=== PATIENT | female | born 1940 | race Caucasian/White ===

== ENCOUNTER 2016-06-08 12:49 | Day surgery (SDC) | payer MEDICARE, OTHER ==
[~2016-06-08] VITALS: Ht 151.1 cm; Wt 73.4 kg
[2016-06-08] VITALS (12 sets, daily range): BP systolic 118–193; BP diastolic 56–107; PULSE 63–77; RESP 13–22; TEMP 97–98.6; O2SAT 94–97; Ht 151.1 cm; Wt 73.4 kg
[~2016-06-08 12:49] MED LIST: ALBU8.5H INH; AMLO10TA2 PO; AMLO10TA4 PO; ASPI-715 PO; CEFAZOLIN 1 GRAM INJECTION IV ONE; CELE-85 PO; CITA-51 PO; LIDOCAINE 1% (10mg/ml) 2ml SDV INJ ONE; LORA2TAB81 PO; LOSA100T44 PO; LR 1,000 ML IV SCH; NEBI5TAB8 PO; OMEP40CA30 PO; QUET25TA73 PO; SUCR1TAB29 PO; [UNRECOGNIZED DRUG - CODE] PO
--- OUTSIDE RECORDS SUMMARY | 2016-06-08 12:52 | XMS REPORT | Continuity of Care Document ---
Author Author [facility] Organization [facility] Address Unknown Phone Unavailable Support Name Relationship Address Phone SOFIA NOYOLA DO Caregiver [phone] [place] [address] Unavailable DARBY STANLEY MD Caregiver [address] [place] [address] [place] [phone] Unavailable RIGOBERTO OLVERA Next Of Kin [address] [place], [place] [id number] Insurance Providers Guarantor Aletha Olvera Wendy Address [address] [place] [address] C Email DENIED/NO TO PT PORTAL Payer Other A Insurance Policy Number [id number] Subscriber's Name Aletha Olvera Wendy Relationship 18 Self Group Number [id number] Effective Date 13 Payer Medicare Policy Number [id number] Subscriber's Name Aletha Olvera Wendy Relationship 18 Self Chief Complaint and Reason for Visit Chief Complaint Cardiac Complaint Reason for Visit Hypertensive urgency Problems Past Problems Medical Problem Onset Date Hypertensive urgency Unknown Medications Current Home Medications Medication Dose Units Route Directions Days Qty Instructions Start Date Albuterol Sulfate (Proair Hfa 90 Mcg/Actuation) 8.5 Gm Hfa.aer.ad 1 Puff Inhalation Every 4 Hours as needed for Shortness Of Air 9 11/06/14 Amlodipine Besylate 10 Mg Tablet 10 Mg Oral Daily 10/31/15 Aspirin (Aspirin Ec) 81 Mg Tablet. 81 Mg Oral Daily 12/23/12 Citalopram Hydrobromide (Celexa) 40 Mg Tablet 40 Mg Oral Bedtime 12/23/12 Lisinopril/Hydrochlorothiazide (Lisinopril-Hctz 10-12.5 Mg Tab) 1 Each Tablet 1 Tab Oral Daily 11/06/14 Lorazepam (Ativan) 2 Mg Tablet 2 Mg Oral Bedtime 12/12/09 Losartan Potassium (Cozaar) 100 Mg Tablet 100 Mg Oral Daily 12/12 Omeprazole (Prilosec) 40 Mg Capsule. 40 Mg Oral Daily 12/23/12 Quetiapine Fumarate 25 Mg Tablet 25 Mg Oral Bedtime 11/06/14 Sucralfate (Carafate) 1 G Tablet 1 G Oral Bedtime 08/13/11 Sulfasalazine 500 Mg Tablet 500 Mg Oral Three Times A Day Past Home Medications Medication Directions Ordered Status Lisinopril 40 Mg Tablet, 40 Mg Oral Daily 06/27/08 Discontinued Meloxicam (Mobic) 15 Mg Tablet, 15 Mg Oral Daily 02/13/08 Discontinued Ranitidine Hcl (Zantac) 300 Mg Tablet, 300 Mg Oral Bedtime 06/27/08 Discontinued Triamterene/Hydrochlorothiazid (Triamterene-Hctz 37.5-25 Tab) 1 Tab Tablet, 1 Tab Oral Daily 06/27/08 Discontinued Social History Social History Problem Response Recorded Date/Time Onset Date Status Chewing Tobacco Status No 12/23/2012 11:46am Not Applicable Not Applicable Hx Substance Use No 10/31/2015 9:59pm Not Applicable Not Applicable Hx Alcohol Use Y OCCASIONAL BEER 10/31/2015 9:59pm Not Applicable Not Applicable Has the pt used tobacco in the last 12 months No 11/07/2014 9:01am Not Applicable Not Applicable Query Response Start Date Stop Date Smoking Status Never smoker Hospital Discharge Instructions No hospital discharge instructions. Plan of Care Discharge Date 10/31/15 10:50pm Disposition 01 DISCHARGED HOME, SELF-CARE Condition at Discharge Improved Instructions/Education Provided High Blood Pressure Prescriptions See Medication Section Referrals SOFIA NOYOLA DO Address: [address] [place] [address] [address] [place] [address] [phone] Note: Follow-up for reevaluation Care Plan and Goals Physician Care Plan Problem: Hypertensive urgency Goal: Follow up with primary care provider Instructions: Take medications and follow care plan as discussed/written Functional Status No functional status results. Allergies, Adverse Reactions, Alerts Allergen Type Severity Reaction Status Last Updated Angiotensin-converting enzyme inhibitor Adverse Reaction Unknown COUGH Active 06/12/11 Benzocaine Adverse Reaction Unknown N/V Active 11/06/14 Oxycodone Allergy Unknown THROAT SWELLING, SHAKINESS Active 11/06/14 Immunizations Query Response on File Recorded Date/Time Hx Influenza Vaccination No 11/07/14 9:01am Hx Pneumococcal Vaccination No 11/07/14 9:01am Hx Tetanus, Diptheria, Pertussis Y 30 years ago 06/12/11 9:39pm Hx Influenza Vaccination No 11/07/14 9:01am Hx Tetanus, Diptheria, Pertussis Y 30 years ago 06/12/11 9:39pm Vital Signs Acute Vital Signs Vital Response Date/Time Temperature (Fahrenheit) 98.3 deg F (96.8 - 99.1) 10/31/2015 10:50pm Temperature (Calculated Celsius) 36.15797 degrees C (36.0 - 37.3) 10/31/2015 10:50pm Pulse Rate (adult) 79 bpm (60 - 100) 10/31/2015 10:50pm Respiratory Rate 18 breaths/min (10 - 20) 10/31/2015 10:50pm O2 Sat by Pulse Oximetry 96 % (90 - 100) 10/31/2015 10:50pm Blood Pressure 170/89 mm Hg 10/31/2015 10:50pm Height (Feet) 4 feet 10/31/2015 9:19pm Height (Inches) 11.50 inches 10/31/2015 9:19pm Weight (Kilograms) 75.600 kg 10/31/2015 9:19pm Body Mass Index (BMI) 33.0 10/31/2015 9:19pm Results Laboratory Results Test Name Result Units Flags Reference Collection Date/Time Result Date/ Time Comments White Blood Count 6.4 T/MM3 4.5-11.0 10/31/2015 9:55pm 10/31/2015 9: 59pm Red Blood Count 4.64 M/MM3 4.00-5.20 10/31/2015 9:55pm 10/31/2015 9: 59pm Hemoglobin 13.8 GM/DL 12-16 10/31/2015 9:55pm 10/31/2015 9:59pm Hematocrit 40.9 % 36-46 10/31/2015 9:55pm 10/31/2015 9:59pm Mean Corpuscular Volume 88.1 UM3 80-100 10/31/2015 9:55pm 10/31/2015 9: 59pm Mean Corpuscular Hemoglobin 29.7 UUG 26-34 10/31/2015 9:55pm 2015 9:59pm Mean Corpuscular Hemoglobin Concent 33.7 GM/DL 31-37 10/31/2015 9:55pm 10/31/2015 9:59pm RDW Standard Deviation 43.3 FL 36.9-50.2 10/31/2015 9:55pm 10/31/2015 9 :59pm Platelet Count 180 T/MM3 130-400 10/31/2015 9:55pm 10/31/2015 9:59pm Mean Platelet Volume 9.7 UM3 9.4-12.4 10/31/2015 9:55pm 10/31/2015 9: 59pm Neutrophils (%) (Auto) 39.1 % 33-66 10/31/2015 9:55pm 10/31/2015 9: 59pm Lymphocytes (%) (Auto) 48.0 % H 23-45 10/31/2015 9:55pm 10/31/2015 9: 59pm Monocytes (%) (Auto) 8.4 % 0-9.0 10/31/2015 9:55pm 10/31/2015 9:59pm Eosinophils (%) (Auto) 3.8 % 0-4 10/31/2015 9:55pm 10/31/2015 9:59pm Basophils (%) (Auto) 0.5 % 0-2 10/31/2015 9:55pm 10/31/2015 9:59pm Immature Granulocyte % (Auto) 0.2 % 0.0-0.5 10/31/2015 9:55pm 2015 9:59pm Absolute Neutrophils (auto) 2.5 T/MM3 1.8-7.7 10/31/2015 9:55pm 2015 9:59pm Absolute Lymphocytes (auto) 3.1 T/MM3 1-4.8 10/31/2015 9:55pm 2015 9:59pm Absolute Monocytes (auto) 0.5 T/MM3 0-0.8 10/31/2015 9:55pm 10/31/2015 9:59pm Absolute Eosinophils (auto) 0.2 T/MM3 0-0.5 10/31/2015 9:55pm 2015 9:59pm Absolute Basophils (auto) 0.0 T/MM3 0-0.2 10/31/2015 9:55pm 10/31/2015 9:59pm Absolute Immature Granulocyte (auto 0.01 T/MM3 0.00-0.03 10/31/2015 9: 55pm 10/31/2015 9:59pm Icterus Index < 2 0-7 10/31/2015 9:55pm 10/31/2015 10:09pm Chemistry Specimen Hemolysis < 15 0-25 10/31/2015 9:55pm 10/31/2015 10:09pm 0-25: Specimen Exhibited No Hemolysis. Turbidity < 20 0-20 10/31/2015 9:55pm 10/31/2015 10:09pm Sodium Level 142 MEQ/L 134-144 10/31/2015 9:55pm 10/31/2015 10:09pm Potassium Level 3.7 MEQ/L 3.6-5 10/31/2015 9:55pm 10/31/2015 10:09pm Chloride Level 108 MEQ/L H 98-107 10/31/2015 9:55pm 10/31/2015 10:09pm Carbon Dioxide Level 24 MEQ/L 22-30 10/31/2015 9:55pm 10/31/2015 10: 09pm Anion Gap 10 MEQ/L 5-15 10/31/2015 9:55pm 10/31/2015 10:09pm Blood Urea Nitrogen 9.0 MG/DL 7-17 10/31/2015 9:55pm 10/31/2015 10: 09pm Creatinine 0.5 MG/DL L 0.7-1.2 10/31/2015 9:55pm 10/31/2015 10:09pm BUN/Creatinine Ratio 18 RATIO 6-26 10/31/2015 9:55pm 10/31/2015 10: 09pm Glomerular Filtration Rate Calc 121 10/31/2015 9:55pm 10/31/2015 10 :09pm Glucose Level 96 MG/DL 65-110 10/31/2015 9:55pm 10/31/2015 10:09pm Calculated Osmolality 272 MOSM/KG 261-280 10/31/2015 9:55pm 10/31/2015 10:09pm Calcium Level 10.0 MG/DL 8.4-10.2 10/31/2015 9:55pm 10/31/2015 10:09pm Troponin I < 0.012 ng/ml 0-0.12 10/31/2015 9:55pm 10/31/2015 10:21pm Troponin values with a difference of 55% increase from orginal troponin value represent a true biological DELTA value. (%increase Calc=Orginal Troponin value, divided by subsequent Troponin value, multiplied by 100) Procedures No known history of procedures. Encounters Encounter Location Arrival/Admit Date Discharge/Depart Date Attending Provider Departed Emergency Room [facility] 10/31/15 9:19pm 10/31/15 10: 50pm DARBY STANLEY MD Recent Diagnosis
[2016-06-08] MEDS ORDERED: BUPIVACAINE 0.25%/EPI 1:200,000 30ml SDV ONE (13:55)
[2016-06-08] MEDS ORDERED: BUPIVACAINE ONE (13:59)
[2016-06-08] MEDS ORDERED: EPI ONE (13:59)
[2016-06-08] MEDS ORDERED: PROPOFOL 500mg 100 ML IV ONE (14:15)
[2016-06-08] MEDS ORDERED: FENTANYL 100mcg/2ml INJECTION ONE (14:39)
--- NOTE | 2016-06-08 15:10 | ANESPREOP ---
Anesthesia Record Date and Time DATE: 06/08/16 TIME: 13:28 Pre-Op Diagnosis Epigastric mass Proposed Surgical Procedure EXPLORATION OF EPIGASTRIC AREA POSSIBLE REMOVAL OF MASS NPO since: midnight Allergies: Coded Allergies: oxycodone (Unverified Allergy, Unknown, THROAT SWELLING, SHAKINESS, ) SHYANN Inhibitors (Verified Adverse Reaction, Unknown, COUGH, 06/12/11) benzocaine (Unverified Adverse Reaction, Unknown, N/V, 11/06/14) Ht/Wt/BMI Height: 4 ' 11.50 " Weight: 73.400 kg BMI: 32.1 kg/m2 Vital Signs Date Time Temp Pulse Resp B/P Pulse Ox O2 Delivery O2 Flow Rate FiO2 06/08/16 13:24 66 16 158/76 06/08/16 12:58 98.6 95 Room Air Medications Inpatient Medications Current Medications Medications (Trade) Dose Ordered Sig/Jerry Start Time Stop Time Status Last Admin Dose Admin Lactated Ringer's (Lactated Ringers) 1,000 ml @ 50 mls/hr Q20H 06/08/16 07:00 06/08/16 13:24 50 MLS/HR Albuterol Sulfate (Proair HFA 90 mcg/actuation) 8.5 Gm Hfa.aer.ad, 1 PUFF INH Q4H PRN for SHORTNESS OF AIR, (Reported) Last Taken: on Unknown Date & Time Amlodipine Besylate (Norvasc) 10 Mg Tablet, 10 MG PO DAILY, (Reported) Last Taken: on 06/07/16 08 Aspirin EC (Aspirin Ec) 81 Mg Tablet.dr, 81 MG PO DAILY, (Reported) Last Taken: on 06/03/16 0800 Celecoxib (Celecoxib) 200 Mg Capsule, 1 CAP PO DAILY, (Reported) Last Taken: on 06/07/16 0800 Citalopram (Celexa) 40 Mg Tablet, 40 MG PO HS, (Reported) Last Taken: on 06/07/162199 Lorazepam (Ativan) 2 Mg Tablet, 2 MG PO HS, ( Reported) Last Taken: on 06/07/162199 Losartan Potassium (Losartan Potassium) 100 Mg Tablet, 100 MG PO DAILY, (Reported) Last Taken: on 06/07/16 08 Nebivolol HCl (Bystolic) 5 Mg Tablet, 5 MG PO DAILY, (Reported) Last Taken: on 06/07/16 08 Omeprazole (Prilosec) 40 Mg Capsule.dr, 40 MG PO DAILY, (Reported) Last Taken: on 06/07/16 08 Quetiapine Fumarate (Quetiapine Fumarate) 25 Mg Tablet, 25 MG PO HS, (Reported) Last Taken: on 06/06/162199 Sucralfate (Carafate) 1 G Tablet, 1 G PO HS, ( Reported) Last Taken: on 06/07/162199 Sulfasalazine (Sulfasalazine) 500 Mg Tablet, 500 MG PO TID, (Reported) Last Taken: on 06/06/162199 Currently on Beta Damir: Yes Beta Damir Last Taken: BYSTOLIC @ 0800 06/08/16 Medical/Surgical History Anesthesia PMH: Reports: *Hypertension, Arthritis, Depression, Headaches ( occasional), Obesity, Pneumonia (HX OF 2005), Reflux, Denies: *Angina, *Diabetes , *Dyspnea, *PR, Anesthesia Reactions (NO AIRWAY ISSUES KNOWN-NAUSEA), Asthma, Blood Transfusion Reac, CHF, COPD, CVA/Stroke/TIA, Cancer, Clotting Problems, Deep Vein Thrombosis, Glaucoma, Hepatitis, Hiatal Hernia, Malignant Hyperthermia , Renal Disease, Rheumatic Fever, Seizures, Sleep Apnea, Thyroid Disease, Tuberculosis Smoking Status: Never smoker Has pt. smoked today?: No Use Chewing Tobacco?: No Second Hand Exposure: No Substance Use Type: does not use Alcohol Intake: none HX of Last Menstrual Period: AGE 30 Past Surgical History Orthopedic Surgeries: Yes - R RCR Abdominal Surgeries: Yes - FERNANDEZ, APPY, HERNIA REPAIR Genitourinary Surgeries: No Cardiac Surgeries: No Endocrine Surgeries: No Reproductive Surgeries: Yes - HYSTERECTOMY Neurological Surgeries: No Ear Surgeries: No Nose Surgeries: No Throat Surgeries: Yes - T&A, EGD Other Surgeries: Yes - COLONOSCOPY Anesthesia Adverse Reactions: FOUND none Family Hx of Anesthesia Advers: none Hx of Motion Sickness: No Pertinent Findings EKG Rhythm: Sinus Rhythm Physical Exam Respiratory: Lungs clear Cardiovascular: FOUND Regular rate, rhythm Airway Assessment Mallampati Score: II TMD: 3 Fingerbreadths Neck Extension: Fair Overall Assessment: No Airway Concerns ASA: 3 Plan Anesthesia Plan: TIVA, LMA Discussion Discussed risks/options/alternatives of anesthesia and questions answered. Patient consents. Nursing pain assessment noted. Attestation Statement Prior to the delivery of any anesthetic medication, I examined the patient, developed the plan, obtained the patient's consent and discussed the risk and benefits of the procedure with the patient/guardian. RADHA COELLO RAG ROOM SUPERVISOR Jun 08, 2016 13:31
--- NOTE | 2016-06-08 15:11 | ANESPO ---
Post-Op Note Date 06/08/16 Time: 15:11 Status Pt Participated in Evaluation: Pt participated in person Vital Signs Date Time Temp Pulse Resp B/P Pulse Ox O2 Delivery O2 Flow Rate FiO2 06/08/16 14:57 97.0 71 16 118/56 97 Room Air Respiratory Function: Airway patent Cardiovascular Function: Regular pulse Telemetry Pattern: SR Mental Status: Alert/oriented Pain Level Intensity: 0 Unable to Assess Pain Due To: Medicated/Sleeping Hydration: Nausea Complications during Recovery None apparent Follow-Up Instructions Instructions Per Surgeon RADHA COELLO CRNA Jun 08, 2016 15:11
[2016-06-08] MEDS ORDERED: ONDANSETRON 4mg/2ml INJECTION IV PRN (15:15)
--- NOTE | 2016-06-08 15:15 | NUR ---
STATUS PATIENT DRY HEAVING. ZOFRAN 4 MG IV ADMINISTERED PER ORDER. WILL CONTINUE TO MONITOR.
[2016-06-08] MEDS ORDERED: DiphenhydrAMINE 50 MG/ML INJECTION IV ONE ×2 (16:00→16:30)
[2016-06-08] MEDS ORDERED: HYDR-4246 PO (16:07)
--- NOTE | 2016-06-08 16:25 | NUR ---
STATUS PATIENT CONTINUES TO SCRATCH ON HER CHEST AND UPPER LEGS AND STATES SHE "ITCHES". ORDER RECEIVED FOR SECOND DOSE OF BENDADRY. SEE EMAR.
--- NOTE | 2016-06-08 22:30 | OPNOTEF ---
DATE OF SERVICE 06/08/2016 SURGEON Sami Vega MD PREOPERATIVE DIAGNOSIS Subcutaneous mass involving epigastric region. POSTOPERATIVE DIAGNOSIS Excisional biopsy of 5-cm subcutaneous mass involving anterior abdominal wall within epigastric region. ANESTHESIA TIVA/local. BRIEF HISTORY/INDICATIONS Mrs. Rodriguez is a 75-year-old female who recently presented to my office a result of a "painful lump" involving her anterior abdominal wall. The patient was found have an obvious mass involving her anterior abdominal wall within the epigastric region just to the right of midline. This mass did appear to slightly increase upon cough and Valsalva. I informed the patient that it was my intuition that the subcutaneous mass was likely that of a lipoma but could indeed be secondary to a small ventral hernia. It was therefore my recommendation that this mass be excised in an operative setting in the circumstance that the underlying etiology was that of a ventral hernia. Patient presents today to undergo exploration of this mass with possible excision of lipoma, possible repair of incarcerated ventral hernia. For completeness please refer to notes included in the patient's chart. PROCEDURE The area of concern was marked out percutaneously preoperatively. The patient was subsequently taken to the operative suite and placed on the table in supine fashion. The area of concern was then prepped and draped in sterile fashion. Formal time-out was then completed. Next, 0.25% Marcaine with epinephrine was injected overlying the palpable abnormality. A 4-5 cm incision was then made overlying the area of analgesia. Dissection carried down into deep subcuticular tissues. A well-encapsulated benign-appearing lipoma was identified. This lipoma was excised in its entirety and passed off the table as a surgical specimen. This lipomatous-appearing lesion was 5 cm in diameter. Hemostasis was obtained within the wound. Incision was then closed in layers. Deep subcutaneous tissues were reapproximated in a running fashion with 3-0 Vicryl. Skin was then closed in a running subcuticular fashion with 4-0 Monocryl. Dermabond was placed overlying incision. The patient is in the process of awakening from her anesthetic and will be sent back to the recovery room once deemed in stable condition. ARTURO
== END 2016-06-08 17:08 | disposition home or self-care (01) ==
LOC: SCU 12:49
PROVIDERS: ATTEND Surgery
DX: D17.1 Benign lipomatous neoplasm of skin and subcutaneous tissue of trunk (principal); I10 Essential (primary) hypertension; F41.9 Anxiety disorder, unspecified; K21.9 Gastro-esophageal reflux disease without esophagitis; I49.9 Cardiac arrhythmia, unspecified; Z79.82 Long term (current) use of aspirin; Z79.899 Other long term (current) drug therapy; Z79.1 Long term (current) use of non-steroidal anti-inflammatories (NSAID); Z88.5 Allergy status to narcotic agent; Z88.8 Allergy status to other drugs, medicaments and biological substances; Z90.49 Acquired absence of other specified parts of digestive tract; Z90.710 Acquired absence of both cervix and uterus
CPT/HCPCS: 22903; J0690; J1200; J2405; J3010; J7120